=== PATIENT | female | born 1995 | race African-American/Black ===

== ENCOUNTER 2025-06-08 03:56 | Emergency (ER) | payer BC ==
[~2025-06-08] VITALS: Ht 160 cm; Wt 58.3 kg
[2025-06-08 04:04] VITALS: O2SAT 100
[2025-06-08 04:10] VITALS: BP 119/67; PULSE 66; RESP 18; TEMP 36.7; O2SAT 100
[2025-06-08 04:33] LABS: BASOPHILS % 0.2 % (0.0-2.0); EOSINOPHILS % 0.1 % (0.0-5.0); HEMATOCRIT. 35.2 % (36.0-48.0); HEMOGLOBIN. 11.2 g/dL (12.0-16.0); LYMPHOCYTES % 12.1 % (20.0-50.0); MEAN PLATELET VOLUME 8.6 fl (7.4-10.4); MONOCYTES % 2.9 % (2.0-8.0); NEUTROPHILS % 84.7 % (40.0-76.0); PLATELET 262 x1000/uL (130-400); RED BLOOD CELL COUNT 4.22 mill/uL (4.2-5.4); RED CELL DISTRIBUTION WIDTH 15.6 % (11.6-14.6)
[2025-06-08 04:48] LABS: CREATININE 0.8 mg/dL (0.6-1.0)
[2025-06-08 04:49] LABS: PROTEIN TOTAL 7.8 g/dL (6.0-8.3)
[2025-06-08 04:50] LABS: ASPARTATE AMINOTRANSFERASE 18 IU/L (<34); BILIRUBIN DIRECT 0.2 mg/dL (<=3.0)
[2025-06-08 04:50] LABS: CLARITY URINE CLEAR (CLEAR); COLOR URINE YELLOW (YELLOW); GLUCOSE URINE NEGATIVE (NEGATIVE); KETONES URINE 2+ (NEGATIVE); LEUKOCYTE ESTERASE URINE NEGATIVE (NEGATIVE); NITRITE URINE NEGATIVE (NEGATIVE); OCCULT BLOOD URINE 1+ (NEGATIVE); PH URINE 5.0 (4.5-8.0); PROTEIN URINE TRACE (NEGATIVE); SPECIFIC GRAVITY URINE 1.015 (1.005-1.030); UROBILINOGEN URINE 0.2 E.U./dL (0.2-1.0)
[2025-06-08 04:51] LABS: BILIRUBIN TOTAL 0.5 mg/dL (0.1-1.0)
[2025-06-08 04:58] LABS: HCG SCREEN NEGATIVE
[2025-06-08] MEDS ORDERED: ONDANSETRON 4MG ODT PO ONE (05:00)
[2025-06-08] MEDS ORDERED: ACETAMINOPHEN 325MG TABLET PO ONE (05:00)
[2025-06-08 05:20] LABS: UREA NITROGEN BLOOD 6 mg/dL (9-23)
[2025-06-08 05:36] LABS: BACTERIA URINE TRACE; RBC URINE 0-2 /hpf (0-2); SQUAMOUS EPITHELIAL CELL URINE FEW /lpf (RARE/1+); WBC URINE 0-2 /hpf (0-2)
== END 2025-06-08 05:26 | disposition left against medical advice (07) ==
LOC: ER 03:56
DX: R11.2 Nausea with vomiting, unspecified (principal)
CPT/HCPCS: 99282; 80076; 80048; 81003; 81025; 84703; 83690; 85025; 36415; Q0162; 99281